=== PATIENT | male | born 1935 | race Caucasian/White ===

== ENCOUNTER 2017-11-07 13:32 | Inpatient (IN) ==
--- NOTE | 2017-11-07 13:58 | Emergency Department Report ---
General Adult HPI - General Chief complaint: Nausea/Vomiting/Diarrhea Stated complaint: body aches, pain behind right eye Time Seen by Provider: 11/07/17 13:33 Source: patient, family Mode of arrival: ambulatory Limitations: no limitations - History of Present Illness HPI narrative: Patient is a 82-year-old male presents emergency room for evaluation of headache behind the right eye, right lower extremity swelling and pain. Patient has been seen 2 times in the last 48 hours for the same complaints. Patient's had CT scan of his head, no etiology. Patient had full subtle laboratories yesterday which were noncontributory. Patient improved on IV medications yesterday was discharged home with Compazine and [place] for pain. Patient continuing to do poorly at home, significant nausea, unable to keep pain medications down or knocked her medications down. Patient states he was told yesterday by nurse practitioner that if he was not feeling better today to return to the ER for admission. Patient did contact primary care's office, who offered to have patient seen by one of their other providers, however family decided bring patient to the emergency room. states she is having difficulty taking care of the patient at home. - Related Data Home Medications Medication Instructions Recorded Confirmed Alendronate Sodium 70 mg PO WEEKLY 11/05/17 11/07/17 Calcium 600 + D [Caltrate + D] 1 tab PO DAILY 11/05/17 11/07/17 Cholecalciferol (Vitamin D3) 2,000 unit PO DAILY 11/05/17 11/07/17 [Vitamin D3] Ferrous Sulfate [Iron] 325 mg PO DAILY 11/05/17 11/07/17 Furosemide [Lasix 20 mg Tab] 20 mg PO DAILY 11/05/17 11/07/17 Hydrocodone/APAP 5/325 [[place] 1 tab PO Q4-6HR PRN 11/05/17 11/07/17 5/325] Magnesium Oxide [Magnesium] 500 mg PO DAILY 11/05/17 11/07/17 Omeprazole 40 mg PO DAILY 11/05/17 11/07/17 Psyllium Seed (with Dextrose) 1 tsp PO DAILY 11/05/17 11/07/17 [Natural Fiber Lax Powder] Sennosides/Docusate Sodium [Stool 2 tab PO DAILY 11/05/17 11/07/17 Softener-Stimulant Lax] Sucralfate [Carafate] 1 gm PO DAILY 11/05/17 11/07/17 Prochlorperazine Tab [Compazine] 5 mg PO Q4-6HR PRN 11/07/17 11/07/17 Previous Rx's Medication Instructions Recorded Ondansetron Odt [Zofran Odt Tablet] 4 mg PO Q4HR PRN #18 tab 11/05/17 Allergies Allergy/AdvReac Type Severity Reaction Status Date / Time codeine Allergy Unknown unknown Verified 11/07/17 14:02 Review of Systems Constitutional: Reports: weakness. Denies: fever, chills Eyes: Denies: eye pain ENT: Denies: ear pain, throat pain, dental pain Cardiovascular: Denies: chest pain, palpitations, dyspnea on exertion Respiratory: Denies: cough, dyspnea, wheezes Gastrointestinal: Reports: nausea, vomiting. Denies: abdominal pain Genitourinary: Denies: urgency, dysuria, frequency Neurological: Reports: headache. Denies: weakness, numbness Psychiatric: Denies: anxiety, depression Endocrine: Denies: fatigue, heat or cold intolerance Hematological/Lymphatic: Denies: easy bleeding PFSH Patient Stated Medical History Sleep Apnea No Ulcer Yes Other Hematologic Yes: lymphoma Other Musculoskeletal Yes: lymphedema Clinic Medical History (Last Updated 11/07/17 @ 15:32 by Layla Cerda APRN) Anemia (Chronic Medical) Cancer (Chronic Medical) Neuropathy (Chronic Medical) Osteoporosis (Chronic Medical) Stomach ulcer (Chronic Medical) Lymphoma (Inactive Medical) last treatment with Chemo was in 2014 Surgical History: Appendectomy. Exploratory lap. Rt upper arm fx repair (no hardware per pt). Partial stomach removed/ulcer repair Family History: Family History (Last Reviewed 10/09/17 @ 10:28 by Arlene Rivera MD) Sister Heart disease Father Emphysema/COPD Arthritis Brother Cancer of colon Melanoma Cancer Sister Cancer - Social History Smoking status: Never smoker Substance use type: does not use Alcohol intake frequency: does not drink Household members: spouse Current occupational status: retired Physical Exam - General General appearance: alert, in no apparent distress - Eye Eye exam: Present: PERRL, EOMI - ENT ENT exam: Present: normal oropharynx, mucous membranes moist - Neck Neck exam: Present: full ROM, trachea midline - Chest Chest inspection: Present: symmetric chest wall rise. Absent: tenderness - Respiratory Respiratory exam: Present: normal lung sounds bilaterally. Absent: respiratory distress, wheezes, stridor - Cardiovascular Cardiovascular exam: Present: regular rate, normal rhythm, normal heart sounds - Abdominal Exam Abdominal exam: Present: soft, normal bowel sounds. Absent: distention, tenderness - Extremities Exam Extremities exam: Present: full ROM. Absent: tenderness - Skin Skin exam: Present: warm, dry - Neurological Exam Neurological exam: Present: alert, oriented X3 - Psychiatric Psychiatric exam: Present: normal affect, normal mood Course Vital Signs Temperature 97.7 F 11/07/17 13:38 Pulse Rate 56 L 11/07/17 13:38 Respiratory Rate 18 11/07/17 13:38 Blood Pressure 159/74 H 11/07/17 13:38 Pulse Oximetry 95 11/07/17 13:38 Temperature 97.6 F 11/07/17 14:42 Pulse Rate 56 L 11/07/17 14:42 Respiratory Rate 18 11/07/17 14:42 Blood Pressure 159/74 H 11/07/17 14:42 Pulse Oximetry 95 11/07/17 14:42 Medical Decision Making - [facility] [place] Narrative Medical decision making narrative: Discuss case with Dr. Hayes, will admit observation status for further evaluation - Medical Records Medical records reviewed: Yes: I reviewed the patient's medical records. - Lab Data Result diagrams: 11/07/17 15:33 11/07/17 15:33 Disposition Clinical Impression: intractable nausea, headache Disposition: 02 To [facility] Condition: Stable - Seen By: physician
[2017-11-07] MEDS ORDERED: PROCHLORPERAZINE 10 MG/2 ML INJECTION IVP PRN (14:31)
[2017-11-07] MEDS ORDERED: ONDANSETRON ODT 4 MG TABLET PO PRN (14:31)
[2017-11-07] MEDS ORDERED: FALL RISK - PHARMACY CONSULT MC ONE (14:41)
[2017-11-07] MEDS: MORPHINE SULFATE 4mg INJECTION IVP PRN ×2 (14:51→19:47)
[2017-11-07] MEDS: SALINE FLUSH 10ml SYRINGE IVF PRN (14:52)
[2017-11-07] MEDS: ENOXAPARIN 40 MG/0.4 ML INJECTION SQ SCH (14:52)
--- NOTE | 2017-11-07 15:21 | History & Physical Report ---
History of Present Illness Date: 11/07/17 Chief complaint: Right lower extremity lymphedema, nausea, headaches HPI: Mr Henderson is a pleasant 82-year-old male who presents to the emergency room today , his 3rd day in a row for acute evaluation of headaches and nausea. On 11/05 was seen in ER for headache. CT of the brain was negative. He was placed on Zofran for nausea and encouraged to increase his [place]. He was using for pain control. The following day on 11/06 patient presented to the emergency room again complaining of nausea, vomiting and headache. Labs were overall unremarkable. She was hydrated and discharged on Compazine for nausea and vomiting. Today he returns to the emergency room complaining of ongoing right leg pain with swelling as well as ache and nausea. Following interview. For further information. Patient reports he has had chronic B-cell follicular lymphoma 4 years and has been under the chronic care of Dr. Dunlap. He reports that he recently was found to have increased lymph nodes in the right groin, thus causing increased lymphedema to the right lower extremity. This has been worsening over the past 1 month. Patient is planning for chemotherapy tablet. However, they are waiting for this to arrive as it is a new drug. He reports that he has had headaches for the past 1 week. We discussed in great detail possible causes. Oral patient has been more dehydrated as he is taking in less fluids and food due to decreased appetite. He was recently started on Lasix for diuresis given lymphedema. Patient has cut his coffee intake in half from 6 or 7 cups a day to 2-3 cups a day. Patient also notes that headaches are minimal in the morning. However, worsen as the day progresses. He is been using more [place] over the last 4 days and wonders if this has attributed to his nausea and vomiting. Given the multiple emergency room visits and failed outpatient treatment of antiemetics and pain control. The hospitalist services were contacted and accepted. Patient for outpatient observation for further evaluation and treatment. Review of Systems All systems PM: 10-point ROS was reviewed, no additional remarkable complaints except - Constitutional Constitutional: Present: anorexia, fatigue, headache(s) - Hematologic/Lymphatic Hematologic/Lymphatic: Present: as per HPI, lymphadenopathy Past Medical History Medical History: Medical History (Last Updated 11/07/17 @ 15:32 by Layla Cerda APRN) Anemia Cancer Neuropathy Osteoporosis Stomach ulcer Lymphoma last treatment with Chemo was in 2014 Medical History Updates: B-cell follicular lymphoma. Gastric ulcers. Neuropathy. Chronic anemia. Osteoprosis. Previous lymphoma-treated 40 years ago Surgical History: Appendectomy. Exploratory lap- drainage of 5 liters of fluid in the abdominal cavity. Malignant. 1971. Partial resection due to gastric ulcers-1961. Vertebral plasty-L5- 06/2017 Family History: Family History Sister Heart disease Father Emphysema/COPD Arthritis Brother Cancer of colon Melanoma Cancer Sister Cancer Family History: As Above - Social History Smoking status: Never smoker Substance use type: does not use Alcohol intake frequency: does not drink Housing: house Household members: spouse Current occupational status: retired (Loader Helper) Current residence: Apartment/Private Home (resides independently at home with his . Enjoys woodworking as a hobby) Social history: PCP Dr Parker Oncologist- Dr Dunlap Medications Home Medications Medication Instructions Recorded Confirmed Type Alendronate Sodium 70 mg PO WEEKLY 11/05/17 11/07/17 History Calcium 600 + D [Caltrate + D] 1 tab PO DAILY 11/05/17 11/07/17 History Cholecalciferol (Vitamin D3) 2,000 unit PO DAILY 11/05/17 11/07/17 History [Vitamin D3] Ferrous Sulfate [Iron] 325 mg PO DAILY 11/05/17 11/07/17 History Furosemide [Lasix 20 mg Tab] 20 mg PO DAILY 11/05/17 11/07/17 History Hydrocodone/APAP 5/325 [[place] 1 tab PO Q4-6HR PRN 11/05/17 11/07/17 History 5/325] Magnesium Oxide [Magnesium] 500 mg PO DAILY 11/05/17 11/07/17 History Omeprazole 40 mg PO DAILY 11/05/17 11/07/17 History Ondansetron Odt [Zofran Odt Tablet] 4 mg PO Q4HR PRN #18 tab 11/05/17 11/07/17 Rx Psyllium Seed (with Dextrose) 1 tsp PO DAILY 11/05/17 11/07/17 History [Natural Fiber Lax Powder] Sennosides/Docusate Sodium [Stool 2 tab PO DAILY 11/05/17 11/07/17 History Softener-Stimulant Lax] Sucralfate [Carafate] 1 gm PO DAILY 11/05/17 11/07/17 History Prochlorperazine Tab [Compazine] 5 mg PO Q4-6HR PRN 11/07/17 11/07/17 History Allergies Allergy/AdvReac Type Severity Reaction Status Date / Time codeine Allergy Unknown unknown Verified 11/07/17 14:02 Exam Vital Signs: Temperature 97.6 F 11/07/17 14:42 Pulse Rate 56 L 11/07/17 14:42 Respiratory Rate 18 11/07/17 14:42 Blood Pressure 159/74 H 11/07/17 14:42 Pulse Oximetry 95 11/07/17 14:42 - Constitutional Present: no acute distress, well nourished, well developed - Routine HEENT Exam Eye: Present: EOMI ENT: Present: mucous membranes moist, dentition normal - Routine Respiratory Exam Present: CTA bilaterally. Absent: wheezes - Routine Cardiovascular Exam Present: RRR, S1, S2. Absent: murmur - Routine Abdominal Exam Present: soft, normoactive bowel sounds, non distended. Absent: tenderness - Routine Extremities Exam Present: edema (RLE 3+ edema), tenderness (RLE) - Routine Skin Exam Present: intact, dry, warm - Routine Neurological Exam Present: alert, oriented X3, CN II-XII intact, moving all extremities - Routine Psychiatric Exam Present: normal affect, normal thought process, cooperative Results - Labs CBC & Chem 7: 11/07/17 15:33 11/07/17 15:33 Assessment and Plan (1) Headache Current visit: Yes Status: Acute Assessment and Plan: Impression Headache- acute Nausea/vomiting- Acute RLE Lymphedema- Acute on chronic T-cell lymphoma - chronic Chronic anemia Neuropathy Osteoporosis History of stomach ulcers Plan Admit patient outpatient observation under the care of Dr. Hayes for headache , nausea, vomiting, right lower extremity lymphedema She has failed outpatient antibiotics and pain control for both headache as well as right lower extremity lymphedema. Recheck labs at time of admission-CBC, CMP, CRP, magnesium, urinalysis for further medical evaluation. Will start IV fluids- NS at 100 ml/hr for hydration. Suspect that overall, patient is intravascularly dehydrated given nausea and vomiting, decreased oral intake, recent initiation of Lasix. Hold Lasix at time of admission Scheduled Compazine every 6 hours for nausea and vomiting. Will work on further headache control. Morphine or Ultram for pain Patient declines MRI or further imaging at this time. Would like to try more conservative measures. In the outpatient setting. Patient has been using increased doses of [place] as well as NSAIDs. Question of headaches could be rebound in nature. Suspect headaches are multifactorial, increased stress with recent worsening lymphoma, dehydration, reduction in caffeine intake. Obtain venous doppler of RLE to rule out acute DVT Initiate Lovenox SQ daily for DVT prophylaxis Did speak with [facility] who does manage lymphedema wraps. Unfortunately they are unable to do consultation. Will patient is at [facility], however, they would be able to follow patient. If patient is in agreement with home health at time of discharge. At this time, we will do a compression wrap using Jett bandages for the entire right lower extremity to help with edema and swelling. Patient does report having constipation, given nausea and vomiting. We'll obtain an abdominal x-ray flat and upright to evaluate for obstruction pattern. He should does wish to be a do not resuscitate and this order is written Will discuss further orders and plan of care with attending, Dr. Bain At time of discharge medical care will return to primary care provider, Dr Parker DVT Prophylaxis: LENNIE Kelly, Lovenox Resuscitation Status: Do Not Resuscitate - Time spent with patient Time with patient PN: 50 minutes - Physician Narrative Physician: Jr Bain MD Narrative: Date: 11/07/17 Time: 1448 Have independently interviewed and examined pt. Chart reviewed. Case discussed with ED physician and my STONEMASON. Care plan developed with my supervision; agree with above. 82 y/o male presents to ED secondary to right leg pain, headache, and significant N/V. Leg with increasing swelling over weeks-more acute in past days. Does have lymphoma and Dr Dunlap has been working on getting him a new oral medication for treatment. Seen in clinic on Friday with increasing swelling and leg pain. Offered [place] at that time, but pain manageable with OTC NSAID and declined [place]. Pain increase the next day and did get Rx for [place]. Notes increasing Headache, about since his leg pain started to increase. [place] causing nausea and vomiting-not been able to eat for the past 3 days. Only minor improvement in nausea with OTC medication. GIORDANO frontal - behind his eyes. No ringing in ears. Lasix initiated for edema-has taken 2 doses without any change. With persistent pain and nausea, represents to ED for evaluation. Placed in OBS for further evaluation and treatment. Lungs: clear CV: regular AB: soft flat nt/nd +BS EXT: marked edema to RLE. MSE: awake alert appropriate. Plan: OBS admission. Will have MS, Tramadol, and [place] for pain. IV Compazine to help nausea, will add scopolamine patch to see if this help nausea and headache. Low flow IVF to help maintain hydration. Sono LE and then place compression wraps. Would be good candidate for outpatient lymphedema treatment with home health. Hold on Lasix. Lovenox for DVT prevention. Monitor lab. DNR per his requests. Care to return to Dr Parker at time of discharge from [facility]. Hospital Course Summary Disclaimer: The visit summary below is not to be considered part of the above Progress Note. Hospital Course: Impression Headache- acute Nausea/vomiting- Acute RLE Lymphedema- Acute on chronic T-cell lymphoma - chronic Chronic anemia Neuropathy Osteoporosis History of stomach ulcers Plan Admit patient outpatient observation under the care of Dr. Hayes for headache , nausea, vomiting, right lower extremity lymphedema She has failed outpatient antibiotics and pain control for both headache as well as right lower extremity lymphedema. Recheck labs at time of admission-CBC, CMP, CRP, magnesium, urinalysis for further medical evaluation. Will start IV fluids- NS at 100 ml/hr for hydration. Suspect that overall, patient is intravascularly dehydrated given nausea and vomiting, decreased oral intake, recent initiation of Lasix. Hold Lasix at time of admission Scheduled Compazine every 6 hours for nausea and vomiting. Will work on further headache control. Morphine or Ultram for pain Patient declines MRI or further imaging at this time. Would like to try more conservative measures. In the outpatient setting. Patient has been using increased doses of [place] as well as NSAIDs. Question of headaches could be rebound in nature. Suspect headaches are multifactorial, increased stress with recent worsening lymphoma, dehydration, reduction in caffeine intake. Obtain venous doppler of RLE to rule out acute DVT Initiate Lovenox SQ daily for DVT prophylaxis Did speak with [facility] who does manage lymphedema wraps. Unfortunately they are unable to do consultation. Will patient is at [facility], however, they would be able to follow patient. If patient is in agreement with home health at time of discharge. At this time, we will do a compression wrap using Jett bandages for the entire right lower extremity to help with edema and swelling. Patient does report having constipation, given nausea and vomiting. We'll obtain an abdominal x-ray flat and upright to evaluate for obstruction pattern. He should does wish to be a do not resuscitate and this order is written Will discuss further orders and plan of care with attending, Dr. Bain At time of discharge medical care will return to primary care provider, Dr Parker
--- NOTE | 2017-11-07 16:27 | XRay Report ---
Indication: constipation, N/V PROCEDURE: XR abdomen 2V: Encounter: Initial Comparison: CT abdomen dated October 16, 2017 Findings: Lung bases are grossly clear. No free air. Bowel gas pattern is nonobstructive and nonspecific with a large amount of stool in the left colon. Gas is seen diffusely to the level of the rectum. Prior bone cement procedure at the L5 level. Old lower thoracic and upper lumbar compression fractures. Impression: Nonobstructive bowel gas pattern. Increased colonic stool burden. .
[2017-11-07] MEDS: NS 1,000 ML IV SCH (16:45)
[2017-11-07] MEDS: PROCHLORPERAZINE 10 MG/2 ML INJECTION IVP SCH ×2 (16:45→22:06)
[2017-11-07] MEDS ORDERED: SCOPOLAMINE 1mg/3 days PATCH (Eq. 1.5 Patch) TD SCH (17:00)
[2017-11-07] MEDS: ENOXAPARIN 100 MG/ML INJECTION SQ SCH (22:05)
[2017-11-07] MEDS: TRAMADOL 50 MG TABLET PO PRN (22:08)
[2017-11-08] MEDS: NS 1,000 ML IV SCH ×2 (03:21→14:17)
[2017-11-08] MEDS: PROCHLORPERAZINE 10 MG/2 ML INJECTION IVP SCH ×4 (04:56→20:45)
[2017-11-08] MEDS: OMEPRAZOLE 20 MG CAPSULE PO SCH (06:50)
[2017-11-08] MEDS ORDERED: SENNA + DOCUSATE TABLET PO SCH ×2 (09:00→21:00)
[2017-11-08] MEDS ORDERED: FUROSEMIDE 20 MG TABLET PO SCH (09:00)
[2017-11-08] MEDS: ENOXAPARIN 100 MG/ML INJECTION SQ SCH ×2 (09:21→20:45)
[2017-11-08] MEDS: PSYLLIUM PACKET PO SCH (09:22)
[2017-11-08] MEDS: MAGNESIUM OXIDE 400 MG TABLET PO SCH (09:22)
[2017-11-08] MEDS: SUCRALFATE 1 GM TABLET PO SCH (09:23)
[2017-11-08] MEDS: TRAMADOL 50 MG TABLET PO PRN ×2 (09:23→18:48)
--- NOTE | 2017-11-08 12:23 | Progress Note ---
- Date 11/08/17 Subjective: F-U: 82-year-old admitted for headache, lymphedema, DVT right lower extremity, nausea and vomiting. Patient is seen this morning following a trip to the bathroom for what he considers a "large bowel movement." He reports his headache is 2/10 and the pain in his leg is 6/10. He did have some vomiting 1 this morning. His reports he has been very sleepy this morning. He describes his headache as being above and behind the right eye. Denies any change in vision or tearing or mattering to the eye. At this point, the definite etiology of the headache remains unclear, although could be multifactorial including increased stress from worsening of lymphoma, dehydration, and increased use of pain medication. He does not have a history of headaches. His headaches started about 6 days ago , about the same time that he started having nausea and vomiting and generally just didn't feel well. Objective Vital signs: Temperature 97.2 F 11/08/17 08:19 Pulse Rate 56 L 11/08/17 08:19 Respiratory Rate 16 11/08/17 08:19 Blood Pressure 151/68 H 11/08/17 08:19 Pulse Oximetry 95 11/08/17 08:19 Height/Weight/BMI: Weight 84.1 kg - Constitutional Present: no acute distress, well nourished, well developed - Routine HEENT Exam Head: Present: normocephalic, atraumatic - Routine Respiratory Exam Present: CTA bilaterally. Absent: wheezes - Routine Cardiovascular Exam Present: RRR, murmur - Routine Abdominal Exam Present: soft, non distended, non tender - Routine Extremities Exam Present: edema (right lower leg is wrapped with an Jett wrap. Edema extends up the entire leg), no edema (left leg), normal capillary refill - Routine Skin Exam Present: dry, warm - Routine Neurological Exam Absent: alert (drowsy at time of exam. Falls asleep frequently during interview. 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 Continue Lovenox at treatment dose for DVT. Consider conversion to p.o. anticoagulation prior to DC. Continue PPI and sucralfate given h/o stomach ulcers. Continue IV fluids until he is taking by mouth well. Continue compression Jett wraps to right leg for edema. Tramadol this morning made patient drowsy. He's not required morphine yet today. We'll continue to monitor pain medication usage. DVT Prophylaxis: Lovenox Resuscitation Status: Do Not Resuscitate - Physician Narrative Physician: Kristy Huff MD Narrative: Date: 11/08/17 Time: 1644 I have independently evaluated and examined this patient. I reviewed the chart, the patient's history, and the PICKER OPERATOR/PA's documented findings as above. We discussed and formulated the assessment and plan as above with additions as below: Mr. Henderson reports ongoing pain and swelling in his right leg but denied pleuritic pain. Headache is ongoing and he had one episode of emesis earlier today although he implied that nausea is improved with scopolamine patch patient is fairly withdrawn and his provides most of recent history indicating that new chemotherapy is planned after recent imaging demonstrated increasing adenopathy in the abdomen. Drowsy male, respirations nonlabored, good airflow, breath sounds clear +2 edema right lower extremity Flat affect Venous Doppler reviewed by myself; telemetry strips also reviewed after nursing reported heart rate dropping into the 30s/40s. Sinus bradycardia generally present and on one occasion heart rate was reported to be 37 but appeared to be limited to a single skipped beat. Generally heart rate in the 50s, occasionally transiently in the 40s. Blood pressure preserved. Discussed anticoagulation options with Dr. Farr who is on-call for Dr. Dunlap- no strong preference. We will clarify if DOACs covered by patient formulary. Continue Lovenox in the intervening time, will give single dose warfarin today in the event Eliquis not cost affordable. Blood pressure modestly elevated Hospital Course Summary Disclaimer: The visit summary below is not to be considered part of the above Progress Note. Hospital Course: 11/07/17 Admit patient outpatient observation under the care of Dr. Hayes for headache , nausea, vomiting, right lower extremity lymphedema She has failed outpatient antibiotics and pain control for both headache as well as right lower extremity lymphedema. Recheck labs at time of admission-CBC, CMP, CRP, magnesium, urinalysis for further medical evaluation. Will start IV fluids- NS at 100 ml/hr for hydration. Suspect that overall, patient is intravascularly dehydrated given nausea and vomiting, decreased oral intake, recent initiation of Lasix. Hold Lasix at time of admission Scheduled Compazine every 6 hours for nausea and vomiting. Will work on further headache control. Morphine or Ultram for pain Patient declines MRI or further imaging at this time. Would like to try more conservative measures. In the outpatient setting. Patient has been using increased doses of [place] as well as NSAIDs. Question of headaches could be rebound in nature. Suspect headaches are multifactorial, increased stress with recent worsening lymphoma, dehydration, reduction in caffeine intake. Obtain venous doppler of RLE to rule out acute DVT Initiate Lovenox SQ daily for DVT prophylaxis Did speak with [facility] who does manage lymphedema wraps. Unfortunately they are unable to do consultation. Will patient is at [facility], however, they would be able to follow patient. If patient is in agreement with home health at time of discharge. At this time, we will do a compression wrap using Jett bandages for the entire right lower extremity to help with edema and swelling. Patient does report having constipation, given nausea and vomiting. We'll obtain an abdominal x-ray flat and upright to evaluate for obstruction pattern. He should does wish to be a do not resuscitate and this order is written 11/08/17 Patient declines MRI head at this time. Continue Lovenox at treatment dose for DVT. Consider conversion to p.o. anticoagulation prior to DC. Continue PPI and sucralfate given h/o stomach ulcers. Continue IV fluids until he is taking by mouth well. Continue compression Jett wraps to right leg for edema. Tramadol this morning made patient drowsy. He's not required morphine yet today. We'll continue to monitor pain medication usage.
[2017-11-08] MEDS ORDERED: WARFARIN 5 MG TABLET PO ONE (17:03)
[2017-11-08] MEDS: ENOXAPARIN 40 MG/0.4 ML INJECTION SQ SCH (20:25)
[2017-11-09] MEDS: NS 1,000 ML IV SCH ×2 (01:00→12:47)
[2017-11-09] MEDS: TRAMADOL 50 MG TABLET PO PRN ×4 (01:31→22:23)
[2017-11-09] MEDS: OMEPRAZOLE 20 MG CAPSULE PO SCH ×2 (05:25→05:41)
[2017-11-09] MEDS: PROCHLORPERAZINE 10 MG/2 ML INJECTION IVP SCH ×4 (05:25→22:24)
[2017-11-09] MEDS: PSYLLIUM PACKET PO SCH (09:00)
[2017-11-09] MEDS: ENOXAPARIN 100 MG/ML INJECTION SQ SCH ×2 (09:00→20:26)
[2017-11-09] MEDS: MAGNESIUM OXIDE 400 MG TABLET PO SCH (09:03)
[2017-11-09] MEDS: SUCRALFATE 1 GM TABLET PO SCH (09:03)
[2017-11-09] MEDS: SENNA + DOCUSATE TABLET PO SCH (09:04)
--- NOTE | 2017-11-09 10:22 | Ultrasound Report ---
Indication: Right lower semisolid PROCEDURE: US venous doppler LE RT: Encounter: Initial Comparison: None Technique: Color Doppler duplex and grayscale sonographic imaging of the right lower extremity was performed. Findings: There is extensive deep vein thrombosis in the right thigh which is nearly occlusive in multiple locations from the common femoral through the superficial femoral veins. Specifically, serial graded compression was performed from the inguinal ligament to the popliteal bifurcation, on the right thigh. In addition, color and pulsed Doppler demonstrate decreased flow, minimal variation with respiration, and poor augmentation with calf compression. At the ankle, normal flow is identified in the posterior tibial veins; these vessels are also normal in caliber. Impression: Extensive nearly occlusive DVT as above. There is a preliminary report by virtual radiologic. .
[2017-11-09] MEDS ORDERED: SALINE FLUSH 10ml SYRINGE ONE (12:57)
--- NOTE | 2017-11-09 14:10 | Magnetic Resonance Report ---
Indication: headache, lymphoma PROCEDURE: MR head/brain wo/w con: Encounter: Initial Comparisons: Head CT dated November 09, 2017 Technique: Multiplanar, multisequence, MR imaging of the head with and without contrast was acquired. Contrast: 16 mL of ProHance FINDINGS: The ventricles are of normal size, shape, and contour for the patient 's age. There are extensive areas of T2-weighted and T2 FLAIR weighted signal abnormality in the deep frontoparietal white matter that most likely represent small vessel ischemic disease. This is of a degree that is advanced for the patient's age. The brain stem, cerebellum, and cerebral hemispheres otherwise have a normal morphologic appearance as well as MR signal intensity on all pulse sequences. Following intravenous administration of contrast, no areas of abnormal enhancement are evident. There are no areas of restricted diffusion to suggest an acute infarct. There is no evidence of an intracranial mass lesion, intracranial hemorrhage, or hydrocephalus. The visualized portions of the orbits, calvarium, paranasal sinuses, and skull base demonstrate no significant abnormality. IMPRESSION: 1. No acute intracranial abnormality. No infarct, hemorrhage or evidence of metastatic disease. 2. Atrophy and advanced white matter disease for age. .
--- NOTE | 2017-11-09 14:46 | Progress Note ---
- Date 11/09/17 Subjective: Paresh is seen today in follow up. He just returned from MRI today. States still issues with intermittent GIORDANO- worse after noise of MRI. He reports feeling well otherwise. No other acute c/o reported today. Objective Vital signs: Temperature 98.5 F 11/09/17 07:28 Pulse Rate 51 L 11/09/17 08:00 Respiratory Rate 20 11/09/17 09:04 Blood Pressure 136/65 11/09/17 07:28 Pulse Oximetry 94 11/09/17 07:28 Height/Weight/BMI: Weight 83.8 kg - Constitutional Present: no acute distress, well nourished, well developed, average body habitus , cooperative - Routine HEENT Exam Head: Present: normocephalic, atraumatic Eye: Present: EOMI, PERRL, normal accommodation ENT: Present: mucous membranes moist - Routine Respiratory Exam Present: CTA bilaterally. Absent: rales, rhonchi, wheezes - Routine Cardiovascular Exam Present: RRR, S1, S2, no murmur - Routine Abdominal Exam Present: soft, normoactive bowel sounds, non distended, non tender - Routine Extremities Exam Present: pulses intact Comments: left leg with SCD. Right leg with JETT wrap - Routine Musculoskeletal Exam Musculoskeletal: Present: normal strength, moving extremities well - Routine Skin Exam Present: intact, dry, warm - Routine Neurological Exam Present: alert, oriented X3, CN II-XII intact, moving all extremities - Routine Psychiatric Exam Present: normal affect, normal thought process, cooperative Results - Labs CBC & Chem 7: 11/09/17 04:16 11/09/17 04:16 - Imaging and Cardiology MRI - head Status: image reviewed by me Additional comments: MRI brain IMPRESSION: 1. No acute intracranial abnormality. No infarct, hemorrhage or evidence of metastatic disease. 2. Atrophy and advanced white matter disease for age. . 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 Continue supportive care. Could consider trying Fioricet for GIORDANO pain or Depakote trial. Continue PO antiemetics. Serum osmo is trending down. Will decrease IVF to 60ml/ hr. Continue treatment dose Lovenox- Warfarin ordered. Could consider Eliquis as an alternative. Right lymphedema with mild improvement. Stop SCDs since he is fully anticoagulated. Continue supportive care. Repeat labs in AM. DVT Prophylaxis: Lovenox Resuscitation Status: Do Not Resuscitate - Physician Narrative Physician: Kristy Huff MD Narrative: Date: 11/09/17 Time: 1999 I have independently evaluated and examined this patient. I reviewed the chart, the patient's history, and the DENTAL PRACTICE MANAGER/PA's documented findings as above. We discussed and formulated the assessment and plan as above with additions as below: Mr. Henderson was seen with his at the bedside. When seen this morning he reported that his leg was about the same but that headache was only 2-3/10. Headache was more intense after MRI this afternoon and he has noticed that he has some double vision while lying in bed and looking up at the television or clock. Headache is largely centered around the right eye and is a constant ache. He's had no recurrent nausea but is more somnolent than usual. He's had no additional liquid stools today. Nursing reports that the patient is unsteady when he ambulates and they are concerned about fall risk and patient safety. questioned whether medication patient is receiving for headache and nausea may be causing excess somnolence but acknowledged that he has been drowsier than usual for even a week prior to hospitalization. NAD, drowsy, fluent speech-more talkative today than he was yesterday Spontaneous movements 4 extremities, grossly symmetric, no focal weakness appreciated PER, EOMI Irregular cardiac rhythm, decreased heart tones Persistent edema right lower extremity MRI reviewed by myself-no acute pathology appreciated; subsequently radiology report indicated indicated small vessel ischemic disease that is advanced for patient age but no evidence of acute stroke, tumor, or hemorrhage. Patient's reports recent formal eye exam. Discontinue scopolamine patch in the morning, advance diet as tolerated. Tylenol for pain as needed; if headache intensifies significantly or worsens overnight will give trial of Depacon or consider neurology consultation. No history of migraines. Remains in observation status but at present I don't believe he is stable to discharge home safely-PT/OT consults in the morning. Continue warfarin/Lovenox for DVT-López of Xarelto checked with pharmacy and also exceeds patient's ability. Supplemental history provided by nursing and patient's . Hospital Course Summary Disclaimer: The visit summary below is not to be considered part of the above Progress Note. Hospital Course: 11/07/17 Admit patient outpatient observation under the care of Dr. Hayes for headache , nausea, vomiting, right lower extremity lymphedema She has failed outpatient antibiotics and pain control for both headache as well as right lower extremity lymphedema. Recheck labs at time of admission-CBC, CMP, CRP, magnesium, urinalysis for further medical evaluation. Will start IV fluids- NS at 100 ml/hr for hydration. Suspect that overall, patient is intravascularly dehydrated given nausea and vomiting, decreased oral intake, recent initiation of Lasix. Hold Lasix at time of admission Scheduled Compazine every 6 hours for nausea and vomiting. Will work on further headache control. Morphine or Ultram for pain Patient declines MRI or further imaging at this time. Would like to try more conservative measures. In the outpatient setting. Patient has been using increased doses of [place] as well as NSAIDs. Question of headaches could be rebound in nature. Suspect headaches are multifactorial, increased stress with recent worsening lymphoma, dehydration, reduction in caffeine intake. Obtain venous doppler of RLE to rule out acute DVT Initiate Lovenox SQ daily for DVT prophylaxis Did speak with [facility] who does manage lymphedema wraps. Unfortunately they are unable to do consultation. Will patient is at [facility], however, they would be able to follow patient. If patient is in agreement with [facility] at time of discharge. At this time, we will do a compression wrap using Jett bandages for the entire right lower extremity to help with edema and swelling. Patient does report having constipation, given nausea and vomiting. We'll obtain an abdominal x-ray flat and upright to evaluate for obstruction pattern. He should does wish to be a do not resuscitate and this order is written 11/08/17 Patient declines MRI head at this time. Continue Lovenox at treatment dose for DVT. Consider conversion to p.o. anticoagulation prior to DC. Continue PPI and sucralfate given h/o stomach ulcers. Continue IV fluids until he is taking by mouth well. Continue compression Jett wraps to right leg for edema. Tramadol this morning made patient drowsy. He's not required morphine yet today. We'll continue to monitor pain medication usage. 11/09/17 MRI did not reveal any acute pathology. Continue supportive care. Could consider trying Fioricet for GIORDANO pain or Depakote trial. Continue PO antiemetics. Serum osmo is trending down. Will decrease IVF to 60ml/ hr. Continue treatment dose Lovenox- Warfarin ordered. Could consider Eliquis as an alternative. Right lymphedema with mild improvement. Stop SCDs since he is fully anticoagulated. Continue supportive care. Repeat labs in AM.
[2017-11-09] MEDS ORDERED: WARFARIN 5 MG TABLET PO ONE (17:10)
[2017-11-09] MEDS ORDERED: ACETAMINOPHEN 325 MG TABLET PO PRN (20:00)
[2017-11-09] MEDS: MORPHINE SULFATE 4mg INJECTION IVP PRN (22:23)
[2017-11-09] MEDS: SALINE FLUSH 10ml SYRINGE IVF PRN (22:25)
[2017-11-10] MEDS: TRAMADOL 50 MG TABLET PO PRN ×3 (04:43→14:24)
[2017-11-10] MEDS: NS 1,000 ML IV SCH ×2 (04:44→05:57)
[2017-11-10] MEDS: PROCHLORPERAZINE 10 MG/2 ML INJECTION IVP SCH ×2 (04:44→08:46)
[2017-11-10] MEDS: OMEPRAZOLE 20 MG CAPSULE PO SCH (05:58)
[2017-11-10] MEDS ORDERED: SCOPOLAMINE PATCH REMOVAL TD ONE (07:00)
[2017-11-10] MEDS: MAGNESIUM OXIDE 400 MG TABLET PO SCH (08:36)
[2017-11-10] MEDS: SENNA + DOCUSATE TABLET PO SCH (08:37)
[2017-11-10] MEDS: SUCRALFATE 1 GM TABLET PO SCH (08:37)
[2017-11-10] MEDS: ENOXAPARIN 100 MG/ML INJECTION SQ SCH (08:37)
[2017-11-10] MEDS: PSYLLIUM PACKET PO SCH (08:38)
[2017-11-10] MEDS ORDERED: PROCHLORPERAZINE 10 MG/2 ML INJECTION IVP PRN (12:43)
[2017-11-10] MEDS: MORPHINE SULFATE 4mg INJECTION IVP PRN (15:44)
[2017-11-10] MEDS: SALINE FLUSH 10ml SYRINGE IVF PRN ×2 (15:46→20:23)
--- NOTE | 2017-11-10 16:37 | Progress Note ---
- Date 11/10/17 Subjective: Mr. Henderson is been seen multiply throughout the day in addition to multiple conversations with his regarding anticoagulant options. The patient initially reported that he was much better today with no nausea and minimal pain around his right eye. He is now localizing pain to the right eye exclusively and described some double vision late yesterday afternoon when he laid in bed and looked up at the clock or television. Today he noted double vision when he was ambulating as well. He denies tinnitus, ear pain, vertigo, or focal weakness. He denied dyspnea or chest pain. Patient ambulated with physical therapy and was able to walk 338 feet. Objective Vital signs: Temperature 96.1 F L 11/10/17 15:35 Pulse Rate 50 L 11/10/17 15:35 Respiratory Rate 20 11/10/17 15:44 Blood Pressure 165/72 H 11/10/17 15:35 Pulse Oximetry 95 11/10/17 15:35 NAD, resting comfortably Conjugate gaze, conjunctiva clear, sclera anicteric, EOMI, no nystagmus appreciated Diplopia reported on left lateral gaze and left upper gaze; not present left lower gaze, mid case, right gaze. Facial structure symmetric, tongue midline Respirations nonlabored, fair airflow, breath sounds clear Regular cardiac rhythm Abdomen soft, nontender, bowel sounds present +2-3 edema RLE, Jett wrapped No tremor with arms outstretched Rhythm: Normal Sinus Rhythm, Sinus Bradycardia Results - Labs CBC & Chem 7: 11/10/17 05:13 11/10/17 05:13 Labs: INR 1.36 Assessment and Plan (1) Headache Problem details: Negative CT head 11/05/17 Current visit: Yes Status: Acute (2) Acute deep vein thrombosis (DVT) of right lower extremity Problem details: Right common femoral and superficial femoral veins Current visit: Yes Status: Acute Assessment and Plan: Impression Headache, right periorbital-acute Nausea/vomiting- acute DVT - R lower extremity Diplopia-acute RLE Lymphedema- 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 Henderson has been much more alert today than he was yesterday however diplopia is more dominant than yesterday and right sided periorbital headache persists. Early in the day headache was adequately controlled with oral medications over this afternoon he is again requiring morphine and has had recurrent nausea. Scopolamine patch and scheduled Compazine were discontinued earlier today; will remain hospitalized as an inpatient and attempt to better control pain prior to discharge. Diplopia is present primarily on left lateral gaze suggesting ocular muscle palsy-no evidence of stroke or tumor by MRI. Discussed with radiology who indicated that orbital MRI would include finer cuts through the orbit but relatively unlikely to pickup additional pathology. Reassess symptoms off scopolamine and Compazine; consult Dr. Shabazz. [place] added as alternative to IV morphine as patient developed nausea shortly after last morphine shot. After multiple conversations patient/ have decided to use Xarelto for anticoagulation; have confirmed with oncology this will not be in conflict with anticipated chemotherapy. Initial 3 weeks of Xarelto was obtained at no charge and they have a coupon for first month at no charge. Oral intake improved, discontinue IV fluids. Blood pressure modestly elevated, typically not on medications-continue to monitor. Discussed with case management several times through the day, with Dr. Sewell, with radiology. Telemetry reviewed by myself. Extended time spent in patient care and inpatient conversations resolving anticoagulation and management of diplopia. All care provided in patient's room/ on his medical unit. - Time spent with patient Time with patient PN: 50 minutes Coordination of Care: >50% of visit spent providing counseling/coordination of care - Physician Narrative Narrative: Date: 11/10/17 Time: 1631 Hospital Course Summary Disclaimer: The visit summary below is not to be considered part of the above Progress Note. Hospital Course: 11/07/17 Admit patient outpatient observation under the care of Dr. Hayes for headache , nausea, vomiting, right lower extremity lymphedema She has failed outpatient antibiotics and pain control for both headache as well as right lower extremity lymphedema. Recheck labs at time of admission-CBC, CMP, CRP, magnesium, urinalysis for further medical evaluation. Will start IV fluids- NS at 100 ml/hr for hydration. Suspect that overall, patient is intravascularly dehydrated given nausea and vomiting, decreased oral intake, recent initiation of Lasix. Hold Lasix at time of admission Scheduled Compazine every 6 hours for nausea and vomiting. Will work on further headache control. Morphine or Ultram for pain Patient declines MRI or further imaging at this time. Would like to try more conservative measures. In the outpatient setting. Patient has been using increased doses of [place] as well as NSAIDs. Question of headaches could be rebound in nature. Suspect headaches are multifactorial, increased stress with recent worsening lymphoma, dehydration, reduction in caffeine intake. Obtain venous doppler of RLE to rule out acute DVT Initiate Lovenox SQ daily for DVT prophylaxis Did speak with [facility] who does manage lymphedema wraps. Unfortunately they are unable to do consultation. Will patient is at [facility], however, they would be able to follow patient. If patient is in agreement with home health at time of discharge. At this time, we will do a compression wrap using Jett bandages for the entire right lower extremity to help with edema and swelling. Patient does report having constipation, given nausea and vomiting. We'll obtain an abdominal x-ray flat and upright to evaluate for obstruction pattern. He should does wish to be a do not resuscitate and this order is written 11/08/17 Patient declines MRI head at this time. Continue Lovenox at treatment dose for DVT. Consider conversion to p.o. anticoagulation prior to DC. Continue PPI and sucralfate given h/o stomach ulcers. Continue IV fluids until he is taking by mouth well. Continue compression Jett wraps to right leg for edema. Tramadol this morning made patient drowsy. He's not required morphine yet today. We'll continue to monitor pain medication usage. 11/09/17 MRI did not reveal any acute pathology. Continue supportive care. Could consider trying Fioricet for GIORDANO pain or Depakote trial. Continue PO antiemetics. Serum osmo is trending down. Will decrease IVF to 60ml/ hr. Continue treatment dose Lovenox- Warfarin ordered. Could consider Eliquis as an alternative. Right lymphedema with mild improvement. Stop SCDs since he is fully anticoagulated. Continue supportive care. Repeat labs in AM. 11/10/17 Mr. Henderson has been much more alert today than he was yesterday however diplopia is more dominant than yesterday and right sided periorbital headache persists. Early in the day headache was adequately controlled with oral medications over this afternoon he is again requiring morphine and has had recurrent nausea. Scopolamine patch and scheduled Compazine were discontinued earlier today; will remain hospitalized as an inpatient and attempt to better control pain prior to discharge. Diplopia is present primarily on left lateral gaze suggesting ocular muscle palsy-no evidence of stroke or tumor by MRI. Discussed with radiology who indicated that orbital MRI would include finer cuts through the orbit but relatively unlikely to pickup additional pathology. Reassess symptoms off scopolamine and Compazine; consult Dr. Shabazz. [place] added as alternative to IV morphine as patient developed nausea shortly after last morphine shot. After multiple conversations patient/ have decided to use Xarelto for anticoagulation; have confirmed with oncology this will not be in conflict with anticipated chemotherapy. Initial 3 weeks of Xarelto was obtained at no charge and they have a coupon for first month at no charge. Oral intake improved, discontinue IV fluids. Blood pressure modestly elevated, typically not on medications-continue to monitor.
[2017-11-10] MEDS ORDERED: PROCHLORPERAZINE 5 MG TABLET PO PRN (16:49)
[2017-11-10] MEDS ORDERED: METOCLOPRAMIDE 10mg/2ml INJECTION IVP PRN (16:55)
[2017-11-10] MEDS: RIVAROXABAN 15 MG TABLET PO SCH (17:14)
[2017-11-10] MEDS: HYDROCODONE/APAP 5mg/325mg TABLET PO PRN (20:19)
[2017-11-10] MEDS ORDERED: ENOXAPARIN 80 MG/0.8 ML INJECTION SQ SCH (21:00)
[2017-11-11] MEDS: HYDROCODONE/APAP 5mg/325mg TABLET PO PRN ×4 (03:19→14:30)
[2017-11-11] MEDS: SALINE FLUSH 10ml SYRINGE IVF PRN (06:22)
[2017-11-11] MEDS: OMEPRAZOLE 20 MG CAPSULE PO SCH (06:22)
[2017-11-11 07:43] VITALS: RESP 16
--- NOTE | 2017-11-11 08:09 | Progress Note ---
- Date 11/11/17 Subjective: Patient seen in f-u of headache, lymphedema and DVT of R leg. He reports he was ready to go home yesterday. Hopes to go home today. Still has headache but states it isn't as bad - currently 08/16. Last dose of IV pain med was yesterday. Has been controlled overnight and today with Bourg. Last BM the day before yesterday. Pain and swelling in the leg is about the same. No appetite. No vomiting for several days. Objective Vital signs: Temperature 98.1 F 11/11/17 07:42 Pulse Rate 51 L 11/11/17 07:42 Respiratory Rate 16 11/11/17 07:42 Blood Pressure 148/71 H 11/11/17 07:42 Pulse Oximetry 93 11/11/17 07:42 - Constitutional Present: no acute distress, well nourished, well developed - Routine HEENT Exam Head: Present: normocephalic, atraumatic - Routine Respiratory Exam Present: CTA bilaterally. Absent: wheezes - Routine Cardiovascular Exam Present: RRR, no murmur - Routine Abdominal Exam Present: soft, non distended, non tender - Routine Extremities Exam Present: edema (3+ RLE), no edema (LLE), normal capillary refill - Routine Skin Exam Present: dry, warm - Routine Neurological Exam Present: alert, oriented X3 - Routine Lymphatic Exam Lymphatic: Absent: adenopathy - Routine Psychiatric Exam Present: normal affect, cooperative Results - Labs CBC & Chem 7: 11/10/17 05:13 11/11/17 05:16 Assessment and Plan (1) Headache Problem details: Negative CT head 11/05/17 Current visit: Yes Status: Acute (2) Acute deep vein thrombosis (DVT) of right lower extremity Problem details: Right common femoral and superficial femoral veins Current visit: Yes Status: Acute Assessment and Plan: Impression Headache, right periorbital-acute Nausea/vomiting- acute DVT - R lower extremity Diplopia-acute RLE Lymphedema- 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 Brain MRI performed 11/09/17, CT head 11/05/17 - neg for acute changes. Pain is better controlled presently and has had no vomiting despite DC of scopolamine patch and scheduled Compazine yesterday. Consult Dr. Shabazz. He will see patient today. Has asked that we go ahead and order an MRV to look for a venous sinus thrombosis. CRP up to 50.3 from 28.9 on admission. DVT Prophylaxis: Xarelto Resuscitation Status: Do Not Resuscitate - Physician Narrative Physician: Kristy Huff MD Narrative: Date: 11/11/17 Time: 1600 I have independently evaluated and examined this patient. I reviewed the chart, the patient's history, and the [employer]/PA's documented findings as above. We discussed and formulated the assessment and plan as above with additions as below: Mr. Henderson was seen after MRA and MRV of the head. He complained of intense headache following imaging with associated nausea and resolved emesis when he tried to take and Bourg on return from radiology. He continues to have double vision at times but is no longer patching his eye because he didn't find it all that helpful-when asked what he meant he indicated that double vision was gone when he had the patch on but it was still there when he took the patch off. EOMI, pupils symmetric, patient describes vertical diplopia in the right upper outer quadrant today-denies double vision on left lateral gaze [id number] slow but intact Respirations nonlabored TA non-tender, describes tenderness on palp Persistent edema right lower extremity TSH 3.62 MRA brain reviewed by myself-no aneurysms or vascular abnormalities evident to me; radiology reports no aneurysms or flow limiting stenosis. MRV brain without evidence of venous sinus thrombosis/occlusion. Headache discussed with Dr. Shabazz earlier today and again this afternoon when pulmonary results were available. He is recommended addition of Decadron 1-2 mg twice daily to help with inflammation and reassess with time. Reassess if able to take oral adequately this afternoon; had not had nausea prior to prolonged MR for 2 studies. May be able to discharge later today. Hospital Course Summary Disclaimer: The visit summary below is not to be considered part of the above Progress Note. Hospital Course: 11/07/17 Admit patient outpatient observation under the care of Dr. Hayes for headache , nausea, vomiting, right lower extremity lymphedema She has failed outpatient antibiotics and pain control for both headache as well as right lower extremity lymphedema. Recheck labs at time of admission-CBC, CMP, CRP, magnesium, urinalysis for further medical evaluation. Will start IV fluids- NS at 100 ml/hr for hydration. Suspect that overall, patient is intravascularly dehydrated given nausea and vomiting, decreased oral intake, recent initiation of Lasix. Hold Lasix at time of admission Scheduled Compazine every 6 hours for nausea and vomiting. Will work on further headache control. Morphine or Ultram for pain Patient declines MRI or further imaging at this time. Would like to try more conservative measures. In the outpatient setting. Patient has been using increased doses of [place]g as well as NSAIDs. Question of headaches could be rebound in nature. Suspect headaches are multifactorial, increased stress with recent worsening lymphoma, dehydration, reduction in caffeine intake. Obtain venous doppler of RLE to rule out acute DVT Initiate Lovenox SQ daily for DVT prophylaxis Did speak with [facility] who does manage lymphedema wraps. Unfortunately they are unable to do consultation. Will patient is at [facility], however, they would be able to follow patient. If patient is in agreement with [facility] at time of discharge. At this time, we will do a compression wrap using Jett bandages for the entire right lower extremity to help with edema and swelling. Patient does report having constipation, given nausea and vomiting. We'll obtain an abdominal x-ray flat and upright to evaluate for obstruction pattern. He should does wish to be a do not resuscitate and this order is written 11/08/17 Patient declines MRI head at this time. Continue Lovenox at treatment dose for DVT. Consider conversion to p.o. anticoagulation prior to DC. Continue PPI and sucralfate given h/o stomach ulcers. Continue IV fluids until he is taking by mouth well. Continue compression Jett wraps to right leg for edema. Tramadol this morning made patient drowsy. He's not required morphine yet today. We'll continue to monitor pain medication usage. 11/09/17 MRI did not reveal any acute pathology. Continue supportive care. Could consider trying Fioricet for GIORDANO pain or Depakote trial. Continue PO antiemetics. Serum osmo is trending down. Will decrease IVF to 60ml/ hr. Continue treatment dose Lovenox- Warfarin ordered. Could consider Eliquis as an alternative. Right lymphedema with mild improvement. Stop SCDs since he is fully anticoagulated. Continue supportive care. Repeat labs in AM. 11/10/17 Mr. Henderson has been much more alert today than he was yesterday however diplopia is more dominant than yesterday and right sided periorbital headache persists. Early in the day headache was adequately controlled with oral medications over this afternoon he is again requiring morphine and has had recurrent nausea. Scopolamine patch and scheduled Compazine were discontinued earlier today; will remain hospitalized as an inpatient and attempt to better control pain prior to discharge. Diplopia is present primarily on left lateral gaze suggesting ocular muscle palsy-no evidence of stroke or tumor by MRI. Discussed with radiology who indicated that orbital MRI would include finer cuts through the orbit but relatively unlikely to pickup additional pathology. Reassess symptoms off scopolamine and Compazine; consult Dr. Shabazz. Bourg added as alternative to IV morphine as patient developed nausea shortly after last morphine shot. After multiple conversations patient/ have decided to use Xarelto for anticoagulation; have confirmed with oncology this will not be in conflict with anticipated chemotherapy. Initial 3 weeks of Xarelto was obtained at no charge and they have a coupon for first month at no charge. Oral intake improved, discontinue IV fluids. Blood pressure modestly elevated, typically not on medications-continue to monitor. 11/11/17 Xarelto initiated 11/10/17. Brain MRI performed 11/09/17, CT head 11/05/17 - neg for acute changes. Pain is better controlled presently and has had no vomiting despite DC of scopolamine patch and scheduled Compazine yesterday. Consult Dr. Shabazz. He will see patient today. Has asked that we go ahead and order an MRV to look for a venous sinus thrombosis. CRP up to 50.3 from 28.9 on admission.
[2017-11-11] MEDS: PSYLLIUM PACKET PO SCH (08:22)
[2017-11-11] MEDS: RIVAROXABAN 15 MG TABLET PO SCH ×2 (08:23→16:55)
[2017-11-11] MEDS: MAGNESIUM OXIDE 400 MG TABLET PO SCH (08:23)
[2017-11-11] MEDS: SENNA + DOCUSATE TABLET PO SCH (08:23)
[2017-11-11] MEDS: SUCRALFATE 1 GM TABLET PO SCH (08:23)
[2017-11-11] MEDS: NS 1,000 ML IV SCH (10:36)
--- NOTE | 2017-11-11 13:50 | Consultation ---
DATE OF CONSULTATION 11/11/[address] Huff PATIENT'S CHIEF COMPLAINT Headache and double vision. HISTORY OF PRESENT ILLNESS The patient is an 82-year-old male with history of B-cell lymphoma, recent DVT and neuropathy. The patient presented to [facility] with new onset right-sided headache associated with severe nausea and dizziness. The patient later started having double vision which has been worse with the left gaze and downward gaze. The patient's symptoms of headache have been managed with pain medications including morphine. He had no other focal neurological deficit affecting his arms and legs. He had no facial weakness or numbness with the headache. The patient had a CT of the head and an MRI of the brain that showed no acute abnormalities. His DVT has been treated with Xarelto and aspirin. He also had right-sided lymphedema managed with Lasix. The patient continues to have the double vision on a constant basis with no fluctuation. Patient's headache is not changing with change of positioning. Although the patient said that moving his head up and down has had an effect on his double vision in particular and less on the headaches. PHYSICAL EXAMINATION On physical examination, the patient was awake, alert, oriented x2. Pupils were round, reactive and equal. Extraocular muscles were grossly intact with double vision exacerbated with the left gaze and lower gaze. Patient described having two objects on top of each other. There was no facial weakness or numbness on the examination. Speech was fluent and articulate. Tongue movements were normal. Motor examination was 5-/5 in all extremities. Sensory examination was symmetrical for light touch and pinprick bilaterally. There is possible diminished sensation on the right lower extremity compared to the left due to the lymphedema and swelling. Deep tendon reflexes were 2/4. Plantar reflexes were in flexion bilaterally. Coordination for [id number] were slow bilaterally. ASSESSMENT 1. New onset right-sided headache associated with double vision. This can be associated with increased intracranial pressure causing false localizing signs of double vision. Other consideration includes structural problem in the vascular system of the brain. 2. We cannot also rule out the possibility of a small stroke which was not detected on the MRI of the brain. PLAN 1. Obtain an MRA and MRV of the brain to rule out venous sinus thrombosis and aneurysmal changes. 2. Continue Xarelto and aspirin for DVT prophylaxis and stroke prevention. 3. Continue symptomatic treatment for headache and try to titrate the amount of narcotic used if possible. Tramadol can be a good option for long-term headache treatments. 4. Obtain a TSH level to rule out any thyroid conditions associated with eye movement problems and double vision. BRAEDEN
--- NOTE | 2017-11-11 14:44 | Magnetic Resonance Report ---
Indication: diploplia, ?aneurysm PROCEDURE: MR angio head wo con: Encounter: Initial Comparison: Brain MRI dated November 09, 2017 Technique: MRA imaging of the head without contrast was acquired. Maximum intensity projection (MIP) reformatted images were produced. 3-dimensional volume rendered imaging of the [place] was performed by the technologist on a dedicated workstation. Findings: The intracranial portions of the vertebral arteries, internal carotid arteries, and their major branches show no significant stenosis or other vascular anomaly. No aneurysms or vascular malformations are evident. Partial origin of the right posterior cerebral artery. Diffusion weighted images show no evidence of acute infarct. Impression: No evidence of aneurysm or flow-limiting arterial stenosis. .
--- NOTE | 2017-11-11 16:03 | Magnetic Resonance Report ---
Indication: diplopia, R periorbital headache, n/v PROCEDURE: MR venous head wo con: Encounter: Initial Comparison: None Technique: MRV imaging of the head without was acquired. Maximum intensity projection (MIP) reformatted images were produced. Findings: The cortical veins and dural sinuses are widely patent. A right-dominant transverse sinus drainage system is present. Impression: No MRV evidence of dural venous sinus occlusion or flow-limiting stenosis. .
[2017-11-11 16:04] VITALS: PULSE 54
[2017-11-11 16:05] VITALS: BP 159/77; TEMP 95.2; O2SAT 95
[2017-11-11] MEDS ORDERED: DEXAMETHASONE 1 MG TABLET PO SCH (16:15)
--- NOTE | 2017-11-11 19:20 | Discharge Summary ---
Discharge Information Date of admission: 11/10/17 10:00 Anticipated date of discharge: 11/11/17 Attending Physician: Kristy Huff MD Primary care physician: Kaur Hussein DO Consults: Consulting Provider: Cherry Shabazz Reason For Exam: diplopia, R periorbital GIORDANO - Discharge Diagnosis (1) Acute deep vein thrombosis (DVT) of right lower extremity Status: Acute (2) Headache Status: Acute DVT - R common femoral/superficial femoral veins Headache, right periorbital-acute Nausea/vomiting- acute Diplopia-acute variable field RLE Lymphedema T-cell lymphoma Chronic anemia Neuropathy Osteoporosis History of stomach ulcers - Laboratory Labs: 11/11/17 05:16 CRP 28.9 on 11/07/17, if 2.3 on 11/11/17 TSH 3.62 on date of discharge - Radiology Radiology: Right lower extremity venous Doppler on 11/07/17: There is extensive deep vein thrombosis in the right thigh which is nearly occlusive in multiple locations from the common femoral through the superficial femoral veins. Specifically, serial graded compression was performed from the inguinal ligament to the popliteal bifurcation, on the right thigh. In addition, color and pulsed Doppler demonstrate decreased flow, minimal variation with respiration, and poor augmentation with calf compression. At the ankle, normal flow is identified in the posterior tibial veins; these vessels are also normal in caliber. Impression: Extensive nearly occlusive DVT as above. ----- KUB on 11/07/17: Lung bases are grossly clear. No free air. Bowel gas pattern is nonobstructive and nonspecific with a large amount of stool in the left colon. Gas is seen diffusely to the level of the rectum. Prior bone cement procedure at the L5 level. Old lower thoracic and upper lumbar compression fractures. Impression: Nonobstructive bowel gas pattern. Increased colonic stool burden. ----- MRI of the brain with contrast on 11/09/17: The ventricles are of normal size, shape, and contour for the patient 's age. There are extensive areas of T2-weighted and T2 FLAIR weighted signal abnormality in the deep frontoparietal white matter that most likely represent small vessel ischemic disease. This is of a degree that is advanced for the patient's age. The brain stem, cerebellum, and cerebral hemispheres otherwise have a normal morphologic appearance as well as MR signal intensity on all pulse sequences. Following intravenous administration of contrast, no areas of abnormal enhancement are evident. There are no areas of restricted diffusion to suggest an acute infarct. There is no evidence of an intracranial mass lesion, intracranial hemorrhage, or hydrocephalus. The visualized portions of the orbits, calvarium, paranasal sinuses, and skull base demonstrate no significant abnormality. IMPRESSION: 1. No acute intracranial abnormality. No infarct, hemorrhage or evidence of metastatic disease. 2. Atrophy and advanced white matter disease for age. ----- MRV of the brain on 11/11/17: The cortical veins and dural sinuses are widely patent. A right-dominant transverse sinus drainage system is present. Impression: No MRV evidence of dural venous sinus occlusion or flow-limiting stenosis. ----- MRA of the brain on 11/11/17: The intracranial portions of the vertebral arteries, internal carotid arteries, and their major branches show no significant stenosis or other vascular anomaly. No aneurysms or vascular malformations are evident. Partial origin of the right posterior cerebral artery. Diffusion weighted images show no evidence of acute infarct. Impression: No evidence of aneurysm or flow-limiting arterial stenosis. History of Present Illness HPI: Mr Henderson is a pleasant 82-year-old male who presents to the emergency room today , his 3rd day in a row for acute evaluation of headaches and nausea. On 11/05 was seen in ER for headache. CT of the brain was negative. He was placed on Zofran for nausea and encouraged to increase his Savona. He was using for pain control. The following day on 11/06 patient presented to the emergency room again complaining of nausea, vomiting and headache. Labs were overall unremarkable. She was hydrated and discharged on Compazine for nausea and vomiting. Today he returns to the emergency room complaining of ongoing right leg pain with swelling as well as ache and nausea. Following interview. For further information. Patient reports he has had chronic B-cell follicular lymphoma 4 years and has been under the chronic care of Dr. Dunlap. He reports that he recently was found to have increased lymph nodes in the right groin, thus causing increased lymphedema to the right lower extremity. This has been worsening over the past 1 month. Patient is planning for chemotherapy tablet. However, they are waiting for this to arrive as it is a new drug. He reports that he has had headaches for the past 1 week. We discussed in great detail possible causes. Oral patient has been more dehydrated as he is taking in less fluids and food due to decreased appetite. He was recently started on Lasix for diuresis given lymphedema. Patient has cut his coffee intake in half from 6 or 7 cups a day to 2-3 cups a day. Patient also notes that headaches are minimal in the morning. However, worsen as the day progresses. He is been using more Savona over the last 4 days and wonders if this has attributed to his nausea and vomiting. Given the multiple emergency room visits and failed outpatient treatment of antiemetics and pain control. The hospitalist services were contacted and accepted. Patient for outpatient observation for further evaluation and treatment. Objective Vital signs: Temperature 95.2 F L 11/11/17 16:00 Pulse Rate 54 L 11/11/17 16:00 Respiratory Rate 16 11/11/17 16:00 Blood Pressure 159/77 H 11/11/17 16:00 Pulse Oximetry 95 11/11/17 16:00 EOMI, pupils symmetric, patient describes vertical diplopia in the right upper outer quadrant today-denies double vision on left lateral gaze previously present Kxried-wgwj-copane slow but intact Respirations nonlabored TA non-tender, describes tenderness on palp Persistent edema right lower extremity Rhythm: Normal Sinus Rhythm, Sinus Bradycardia Height/Weight/BMI: Weight 83.7 kg Hospital Course This is a general summary of the patient's hospital course. For more details refer to the complete medical record. Hospital course: Mr. Henderson was hospitalized under the care of Dr. Hayes for headache, nausea, vomiting, right lower extremity edema. Venous Doppler was obtained due to extensive edema in the right lower extremity demonstrating extensive DVT in the deep veins of the right calf. Anticoagulation was initiated with Lovenox and warfarin initially although after multiple conversations it was elected to convert to Xarelto. Patient continues to have some discomfort in the right leg at the time of discharge which is especially notable if the leg is in a dependent position. He has been advised to elevate the leg as much as possible and to brent wrap his leg to help with management of preceding lymphedema. He was started on scheduled Compazine every 6 hours and scopolamine patch was placed to help with management of nausea and vomiting. Low-dose morphine and Savona were continued for headache. Nausea was well controlled with this regimen however the patient continued to have intermittent headache in the right periorbital region. He localizes the headache to the orbital rim and did not have tenderness over the temporal artery. He initially declined MR imaging but with persistent headache agreed to MR imaging and later MRA and MRV when he described diplopia in addition to headache. Initially he had diplopia on left lateral and left upper gaze; subsequently diplopia was in the left lower quadrant, and on my last assessment he described double vision in the right upper quadrant. I was patched for a period of 24 hours but he didn't feel that patching really helped. It is noted that the patient has had increasing use of yooi-xpn-jhqaxon pain medications prior to hospitalization and rebound headaches is of concern; patient was advised he cannot use ibuprofen or other "arthritis" medications while he is anticoagulated for DVT. Tramadol was tried for pain control while hospitalized but caused excessive somnolence and was ineffective at managing headache. Scopolamine patch was discontinued on 11/10 and scheduled Compazine stopped later that day. Patient was seen in consultation by Dr. Shabazz due to ongoing headache and diplopia. When results of MRA/MRV were no Dr. Shabazz recommended adding Decadron for inflammation and reassessing symptoms over the next couple of weeks. Patient had one episode of emesis the final hospital day after MR imaging was obtained but was subsequently able to eat and felt stable for discharge in the early evening on 11/11. Patient was anxious for discharge. He was seen by PT/OT throughout the hospitalization and ambulation with walker or assistance recommended. He is asked to follow-up with Dr. Hussein in approximately one week, Dr. Dunlap as previously scheduled, and Dr. Shabazz in 2-4 weeks if needed for ongoing headache. Time spent with patient: discharge greater than 30 minutes Resuscitation Status: Do Not Intubate Discharge Plan - Discharge Disposition Discharge Date: 11/11/17 *Condition: Stable Reason For Visit (Visit label in EMR): N/V, Leg and eye pain - Discharge Medications *Discharge Medications: New Dexamethasone Po [Decadron] 2 mg PO BID #60 tab Rivaroxaban [Xarelto] 15 mg PO BIDWM tab Rivaroxaban [Xarelto] 20 mg PO WS #30 tab Acetaminophen [Tylenol] 650 mg PO QID PRN tab PRN Reason: Discomfort Continue Sennosides/Docusate Sodium [Stool Softener-Stimulant Lax] 2 tab PO DAILY Furosemide [Lasix 20 mg Tab] 20 mg PO DAILY Psyllium Seed (with Dextrose) [Natural Fiber Lax Powder] 1 tsp PO DAILY Omeprazole 40 mg PO DAILY Cholecalciferol (Vitamin D3) [Vitamin D3] 2,000 unit PO DAILY Magnesium Oxide [Magnesium] 500 mg PO DAILY Ferrous Sulfate [Iron] 325 mg PO DAILY Calcium 600 + D [Caltrate + D] 1 tab PO DAILY Alendronate Sodium 70 mg PO WEEKLY Hydrocodone/APAP 5/325 [Savona 5/325] 1 tab PO Q4-6HR PRN PRN Reason: Pain Ondansetron Odt [Zofran Odt Tablet] 4 mg PO Q4HR PRN #18 tab PRN Reason: Nausea Sucralfate [Carafate] 1 gm PO DAILY Prochlorperazine Tab [Compazine] 5 mg PO Q4-6HR PRN PRN Reason: Nausea - Discharge Packet/Instructions *Diet: Regular diet *Activity: Ambulate with assistance as long as double vision is present to minimize risk of falls *Pain Management/Treatment: Tylenol for package instructions as needed; add Savona one tablet every 4-6 hours if Tylenol inadequate. Tylenol should not be taken on a scheduled basis and usually should not take more than 10 tablets of Tylenol and Savona combined in 24 hours *Wound Care: Not applicable Additional Instructions: 1. Continue Xarelto 15 mg twice daily for a total of 42 doses. You have had 3 doses in the hospital. Continue taking twice daily through the morning of 12/01. Start maintenance dose of Xarelto 20 mg daily with your evening meal on 12/01. 2. Savona is constipating in addition to addictating so use with caution. Continue using Metamucil or an alternate fiber supplement to avoid constipation and taking senna 2 tablets daily. Increase senna to 2 tablets twice daily if needed. 3. Decadron is for inflammation which may be contributing to headache. Take 2 tablets twice daily for 1 week and then decrease to 1 tablet twice daily until reevaluated. 4. Continue ondansetron ODT and prochlorperazine tablets for nausea if necessary. *Expected Signs/Symptoms: Variable headache and nausea; discomfort in your right leg which should improve over time with treatment of blood clot and tumor in your pelvis *Notify Physician if: Any uncontrolled bleeding, increasing pain or swelling in lower legs, vomiting that doesn't respond to medications, increasing headache, difficulty breathing *During Business Hours Contact: Dr. Hussein or Dr. Dunlap's offices *After Business Hours Contact: Call [facility] at [phone] and ask that the on-call physician be paged *Pending Lab/Results: No Pending Lab - Referrals/Follow Up *Referrals/Follow Up: Nitin Dunlap MD [Physician] - (Next week as scheduled) Cherry Shabazz MD [Physician] - (Schedule follow-up if headaches are ongoing for further assessment or as directed by Dr. Hussein) Kaur Hussein DO [Primary Care Provider] - 1 Week - Patient Handouts Patient Handouts: Deep Vein Thrombosis (GEN) - Dismissal Complete Discharge Instructions are:: Complete Physician Narrative - Narrative Attestation Narrative: Date: 11/11/17 Time: 1913
== END 2017-11-11 19:10 | disposition home health service (06) | DRG 301 ==
LOC: MED 13:32 → ED 13:32 → SUATTDRO 14:10 → MED 14:40
PROVIDERS: ADMIT Hospitalist; ATTEND Internal Medicine